=== PATIENT | male | born 1960 | race African-American/Black ===

== ENCOUNTER 2016-08-18 09:09 | Observation (INO) | payer BC, OTHER ==
[~2016-08-18] VITALS: Ht 180.3 cm; Wt 95.7 kg
--- NOTE | ~2016-08-18 | TST ---
[facility] Steph Orellana [employer] [place] [address] TREADMILL STRESS TEST Name: CONCHA MARKS Room #: 206-P [facility] IN ..#: [id number] Admission: 08/18/16 Attend Phys: Stuart Carter Discharge: 08/19/16 Date of : 64 Date of Service: 08/20/16 1109 Report #: [id number] THIS REPORT FOR: //name// CC: BRUNA physician/PCP Stuart Mercado DATE OF SERVICE: 08/18/2016 ATTENDING PHYSICIAN: Stuart Mercado M.D. This is a 56-year-old male patient with chest pain, with significant cardiovascular risk factors of age and tobacco use. BRIEF DESCRIPTION OF PROCEDURE: After informed consent was obtained, the patient was brought to excise treadmill suite in stable condition. He underwent regular Homer protocol exercise treadmill study, exercising a total of 9 minutes 25 seconds and reaching a maximal heart rate of 169 beats per minute, which was greater than 100% of predicted maximal heart rate. Peak systolic blood pressure was 210 mmHg with a maximum workload of 10.7 METS. The study was stopped secondary to hypertensive blood pressure response. Resting echocardiogram demonstrated normal sinus rhythm, nonspecific ST-T wave changes. Continuous electrocardiographic monitoring demonstrated J-point depression with rapidly upsloping ST segments, which did not fit for criteria for ischemia. Symptomatically, no chest discomfort was described. IMPRESSION: 1. Subjectively negative for ischemia. 2. Electrocardiographically negative for ischemia. 3. Adequate function capacity. 4. Hypertensive blood pressure response. By: 1109 [id number] Stone Brumfield MD /nt
--- NOTE | ~2016-08-18 | EKG ---
[address] [place] [address] ELECTROCARDIOGRAM REPORT Name: CONCHA MARKS Room #: 206-P [facility]..#: [id number] Admission: 08/18/16 Attend Phys: Stuart Mercado Discharge: 08/19/16 Date of : 64 Report #: [id number] THIS REPORT FOR: //name// [facility] ED Test Date: 2016-08-18 Test Time: 09:25:01 Pat Name: CONCHA MARKS Department: Room: [facility] Gender: M [facility] Coordinator: DANNY : 1960 Requested By: Jv Oh Order Number: [id number] MD: Fuentes Lozoya Measurements Intervals [place] Rate: 76 P: 70 PA: 178 QRS: -23 QRSD: 91 T: 34 QT: 348 QTc: 392 Interpretive Statements Sinus rhythm Probable left atrial enlargement Borderline left axis deviation RSR' in V1 or V2, probably normal variant ST elev, probable normal early repol pattern No previous ECG available for comparison Electronically Signed On 08-20-2016 7:50:39 CDT by Fuentes Lozoya [email or web address] <ELECTRONICALLY SIGNED> By: Fuentes Lozoya MD, [facility] 08/20/16 0750 0925 0925 Fuentes Lozoya MD, [facility] /EPI
[~2016-08-18 09:09] MED LIST: CLARITIN10 MG PO; FLONASE 0.05%50 MCG NASAL; IBUPROFEN 800800 M1 PO; MEDROL DOSPAK21 TAB PO; NORCO 5-325 TA1 EACH PO; PERCOCET 5-3251 EACH PO; VALIUM5 MG PO; ZOFRAN4 MG PO
[2016-08-18 09:42] LABS: ABSOLUTE NEUTROPHILS 4.6 thou/uL (1.4-8.2); BASOPHILS 1.2 % (0.0-2.0); EOSINOPHILS 2.4 % (0.0-3.0); HEMATOCRIT 41.8 % (42.0-52.0); HEMOGLOBIN 14.1 gm/dL (14.0-18.0); LYMPHOCYTES 21.6 % (24.0-44.0); MCH 31.4 pg (26.0-34.0); MCHC 33.7 g/dL (28.0-37.0); MCV 92.9 fL (80.0-100.0); MONOCYTES 4.9 % (1.0-8.0); PLATELET COUNT 234 thou/uL (150-400); POLYS 69.9 % (36.0-66.0); RDW 12.8 % (10.5-14.5); WBC 6.6 thou/uL (4.0-11.0)
[2016-08-18 09:45] LABS: MANUAL DIFF NO
[2016-08-18 09:56] LABS: APTT 29.2 Seconds (24.5-32.8); INR 1.2
[2016-08-18 09:58] LABS: ANION GAP 9 mmol/L (7-16); BUN 13 mg/dL (7-18); CALCIUM 9.6 mg/dL (8.5-10.1); CHLORIDE 108 mmol/L (98-107); CO2 25 mmol/L (21-32); CREATININE 0.9 mg/dL (0.7-1.3); GLUCOSE 103 mg/dL (74-106); POTASSIUM 4.1 mmol/L (3.5-5.1); SODIUM 142 mmol/L (136-145)
[2016-08-18 10:26] LABS: ALBUMIN 3.8 g/dL (3.4-5.0); ALKALINE PHOSPHATASE 89 U/L (46-116); CK-MB MASS 4.2 ng/mL (<0.5-3.6); NT-PRO BRAIN NAT PEPTIDE 8 pg/mL (<300); SGOT 29 U/L (15-37); SGPT 33 U/L (30-65); TOTAL BILIRUBIN 0.6 mg/dL (<0.1-1.0); TOTAL PROTEIN 7.7 g/dL (6.4-8.2); TROPONIN-I < 0.04 ng/mL (<0.04-0.07)
[2016-08-18] MEDS ORDERED: SYMBICORT160 MCG/4. INH ×2 (15:07→15:08)
[2016-08-18 16:15] VITALS: BP 159/70
[2016-08-18] MEDS ORDERED: IBUPROFEN 800800 M1 PO (18:30)
[2016-08-18] MEDS ORDERED: CLEOCIN HCL150 MG PO (18:30)
[2016-08-18 19:47] VITALS: BP 130/69
[2016-08-18 23:28] VITALS: BP 131/78
[2016-08-19 03:51] VITALS: BP 131/79
[2016-08-19 10:42] VITALS: BP 131/79
== END 2016-08-19 11:40 | disposition home or self-care (01) ==
LOC: ER 09:09 → EROBS 10:33 → 2N 11:30
PROVIDERS: Emergency Medicine
DX: R07.89 Other chest pain (principal); M51.24 Other intervertebral disc displacement, thoracic region; M25.519 Pain in unspecified shoulder; S20.219A Contusion of unspecified front wall of thorax, initial encounter; X58.XXXA Exposure to other specified factors, initial encounter; Y93.89 Activity, other specified; Y92.89 Other specified places as the place of occurrence of the external cause; Y99.8 Other external cause status

== ENCOUNTER → 2016-08-25 | Outpatient (CLI) | payer OTHER ==
[~2016-08-25] MED LIST changes: +CLEOCIN HCL150 MG PO; +SYMBICORT160 MCG/4. INH
== END ==
LOC: CAT 15:26
DX: Z13.6 Encounter for screening for cardiovascular disorders (principal)

== ENCOUNTER 2020-08-25 08:43 | Emergency (ER) | payer BC ==
[~2020-08-25] VITALS: Ht 180.3 cm; Wt 97.5 kg
[2020-08-25] MEDS ORDERED: MEDROLDOSEPACK PO (10:43)
[2020-08-25] MEDS ORDERED: NORCO5 PO (10:43)
[2020-08-25 10:59] VITALS: BP 141/81
[2020-08-25 11:04] LABS: CLARITY CLOUDY; COLOR YELLOW; SOURCE SYNOVIAL; TOTAL VOLUME 20 mL
[2020-08-25 11:19] LABS: BF CRYSTALS No Crystals seen (NONE SEEN)
[2020-08-25 12:41] LABS: BF NUCLEATED CELLS 21264 /mm3; BF RBC 3039 /mm3
[2020-08-25 13:25] LABS: BF MACROPHAGE 4 %; BF NEUTROPHILS 95 %
== END 2020-08-25 11:00 | disposition home or self-care (01) ==
LOC: ER 08:43
PROVIDERS: Emergency Medicine
DX: M25.462 Effusion, left knee (principal); F17.210 Nicotine dependence, cigarettes, uncomplicated; Z88.0 Allergy status to penicillin; Z88.7 Allergy status to serum and vaccine; F15.10 Other stimulant abuse, uncomplicated; Z79.899 Other long term (current) drug therapy

== ENCOUNTER 2021-03-31 05:02 | Emergency (ER) | payer BC ==
[~2021-03-31] VITALS: Ht 180.3 cm; Wt 100.2 kg
[~2021-03-31 05:02] MED LIST changes: +MEDROLDOSEPACK PO; +NORCO5 PO
[2021-03-31 05:10] VITALS: BP 149/77
== END 2021-03-31 06:07 | disposition home or self-care (01) ==
LOC: ER 05:02
DX: M25.561 Pain in right knee (principal); F17.210 Nicotine dependence, cigarettes, uncomplicated; Z79.899 Other long term (current) drug therapy; Z88.0 Allergy status to penicillin; Z88.7 Allergy status to serum and vaccine